=== PATIENT | female | born 1965 | race Caucasian/White ===

== ENCOUNTER → 2025-01-03 | Outpatient (CLI) | payer BC, SELFPAY ==
--- NOTE | 2025-01-03 14:25 | RAD_ITS ---
PROCEDURE: PELVIS 1 OR 2 VIEWS 01/03/2025 REASON FOR EXAM: ARTHRITIS TECHNIQUE: PELVIS 1 OR 2 VIEWS COMPARISON: None. FINDINGS: No evidence of acute fracture or dislocation. The joint spaces are maintained. Calcific density overlies the pelvis which may represent a fibroid. RAD/Pelvis 1 or 2 Views IMPRESSION: No acute osseous abnormality. Probable fibroid. Reading Location: [place] [id number]
--- NOTE | 2025-01-03 14:25 | RAD_ITS ---
PROCEDURE: CERV SPINE 2 OR 3 VIEWS 01/03/2025 REASON FOR EXAM: ARTHRITIS TECHNIQUE: CERV SPINE 2 OR 3 VIEWS COMPARISON: None. FINDINGS: No evidence of acute fracture or dislocation. Vertebral body heights are maintained. Up to mild intervertebral disc space narrowing. Normal alignment. RAD/Cerv Spine 2 or 3 Views IMPRESSION: Mild spondylosis. Reading Location: [place] [id number]
[2025-01-03 17:48] LABS: Hematocrit 37.3 % (37-47); Hemoglobin 12.6 g/dL (12.0-15.0); Immature Granulocytes Count 0.020 X10^3/uL (0.0-0.0); Mean Corp Hgb Conc 33.8 g/dL (32-36); Mean Corpuscular Volume 87.4 fL (81-99); Mean Platelet Vol. 9.0 fl (6.2-12.0); NRBC Flagged by Analyzer 0 % (0-5); Platelet Count 262 K/mm3 (150-450); RBC Distribution Width CV 13.2 % (11.6-14.6); RBC Distribution Width SD 41.9 fl (35.1-43.9); Red Blood Count 4.27 M/mm3 (4.2-5.4); White Blood Count 6.2 K/mm3 (4.4-11.0)
[2025-01-03 18:20] LABS: Vitamin D,25 Hydroxy 43.2 ng/mL (30-100)
[2025-01-03 18:40] LABS: AST(SGOT) 21 U/L (<=31); Alanine Aminotransfer ALT/SGPT 13 U/L (<=34); Albumin, Serum 4.1 g/dL (3.5-5.0); Alkaline Phosphatase 89 U/L (35-104); Anion Gap 14 (5-15); BUN 14 mg/dL (4-19); BUN/Creat Ratio 16.1 RATIO (10-20); Calcium,Total 9.6 mg/dL (7.6-11.0); Carbon Dioxide 26.3 mmol/L (21.0-32.0); Chloride 98 mmol/L (98-108); Globulin 3.5 g/dL (2.2-4.2); Glucose 88 mg/dL (70-99); Potassium 3.2 mmol/L (3.3-5.1)
[2025-01-05 11:08] LABS: ANTINUCLEAR ANTIBODIES DIRECT Negative (Negative)
== END | disposition home or self-care (01) ==
LOC: MTLAB 14:22
PROVIDERS: PCP Internal Medicine; Referring Provider Internal Medicine Rheumatology; Visit Provider Internal Medicine Rheumatology
DX: M05.79 Rheumatoid arthritis with rheumatoid factor of multiple sites without organ or systems involvement (principal); Z79.899 Other long term (current) drug therapy
CPT/HCPCS: 36415; 72040; 72170; 80053; 82306; 85025; 86038; 86200; 86431